=== PATIENT | male | born 1960 | race Caucasian/White ===

== ENCOUNTER → 2018-01-28 | Outpatient (CLI) | payer OTHER | LOC: COL.RAD 13:45 | DX: H90.42 Sensorineural hearing loss, unilateral, left ear, with unrestricted hearing on the contralateral side (principal) | CPT/HCPCS: A9585 ==

== ENCOUNTER → 2018-03-05 | Outpatient (CLI) | payer OTHER | LOC: ZCOL.LAB 14:31 | DX: H92.11 Otorrhea, right ear (principal) ==

== ENCOUNTER → 2018-04-08 | Outpatient (CLI) | payer OTHER | LOC: ZCOL.LAB 14:59 | DX: H92.11 Otorrhea, right ear (principal) ==

== ENCOUNTER 2020-03-30 07:55 | Day surgery (SDC) | payer BC ==
[~2020-03-30] VITALS: Ht 172.7 cm; Wt 85.2 kg
[2020-03-30] VITALS (7 sets, daily range): BP systolic 139–158; BP diastolic 61–79; PULSE 77–89; TEMP 96.8–97.7
[2020-03-30] MEDS ORDERED: GLUCOPHAGE XR500 M1 PO (08:18)
[2020-03-30] MEDS ORDERED: DIABETA 5MG5 MG/TAB PO (08:19)
[2020-03-30] MEDS ORDERED: JANUVIA 100MG100 MG PO (08:19)
[2020-03-30] MEDS ORDERED: ZESTRIL2.5 MG PO (08:20)
--- NOTE | 2020-03-30 13:25 | NUR ---
[place] [facility] [place] [facility] [place], accompanied by [employer] PROJECT MANAGER Verito. He is sitting up in bed, alert and oriented. Monitoring is applied -VSS and WNL on room air. He denies pain, just "soreness", and does not want any pain medication. He has some mild nausea, which was treated with Zofran in the PACU. He has 3 incisions on his left abdomen that are clean/dry/intact. Abdomen is soft, tender. Lights are dimmed for comfort. Call light in reach.
--- NOTE | 2020-03-30 13:40 | NUR ---
Patient is resting comfortably in room. Denies needs.
--- NOTE | 2020-03-30 13:55 | NUR ---
Geraldine Arellano RN checks on the patient at this time. He is provided sprite and crackers. She reports no further needs.
--- NOTE | 2020-03-30 14:25 | NUR ---
Patient is resting comfortably, eating/drinking. Tolerating PO well. His VS are stable. He denies pain or nausea. He ambulates to the restroom with standby assist and steady gait. He voids a large amount of clear/yellow urine and returns to room.
--- NOTE | 2020-03-30 15:00 | NUR ---
VSS and WNL on room air. Patient is asleep.
--- NOTE | 2020-03-30 15:48 | NUR ---
Patient has met discharge criteria. Discharge instructions discussed. He denies any questions and verbalizes understanding. PIV is removed with catheter intact and hemostasis achieved. He changes to his clothing independently. His is available to pick him up at 1615.
--- NOTE | 2020-03-30 16:10 | NUR ---
Patient is escorted to the exit via wheelchair. He is discharged to home with ride in private vehicle at 1610. His drives him home.
== END 2020-03-30 16:10 | disposition home or self-care (01) ==
LOC: SDCO 07:55
DX: K43.2 Incisional hernia without obstruction or gangrene (principal); I10 Essential (primary) hypertension; E11.9 Type 2 diabetes mellitus without complications; Z85.048 Personal history of other malignant neoplasm of rectum, rectosigmoid junction, and anus; Z79.84 Long term (current) use of oral hypoglycemic drugs
CPT/HCPCS: C1781; J0690; J1100; J1885; J2405; J2704; J3010; J7030

== ENCOUNTER 2022-02-11 14:30 | Outpatient (RCR) | payer BC ==
[~2022-02-11 14:30] MED LIST: APRESOLINE 10MG10 MG PO; ASPIRIN E.C. 8181 MG PO; DIABETA 5MG5 MG/TAB PO; FREESTYLE PREC1 EAC5 MC; GLUCOPHAGE XR500 M1 PO; GLUCOSE TEST ST1 DEV MC; INSULIN PEN NE1 EAC1 MC; JANUVIA 100MG100 MG PO; LANCETS MC; LEVEMIR FLEX100 U/ML SQ; LEVEMIR100 U/ML SQ; LIPITOR20 MG PO; MOUNJARO2.5 MG/0.5 SQ; NORVASC 10MG10 MG PO; NORVASC 5MG5 MG/TAB PO; NOVOLOG 100U100 U/M1 SQ; NOVOLOG FLEX100 U/ML SQ; TRULICITY1.5 MG/0.5 SQ; ZESTRIL2.5 MG PO
== END 2022-02-18 | disposition home or self-care (01) ==
LOC: MKS.ESL.OT
DX: I69.998 Other sequelae following unspecified cerebrovascular disease (principal)